=== PATIENT | female | born 1975 | race Caucasian/White ===

== ENCOUNTER 2022-05-18 10:29 | Day surgery (SDC) | payer OTHER ==
[~2022-05-18] VITALS: Ht 167.6 cm; Wt 107.7 kg
[~2022-05-18 10:29] MED LIST: DETROL1 MG PO; FLEVOXIN TABLE1 EACH PO; LEXAPRO10 MG PO; OSTERA TABLET1 EACH PO; PRILOSEC OTC20 MG PO; XELJANZ XR11 MG PO
--- NOTE | 2022-05-18 14:57 | NUR ---
05/18/22 1457 Lillie Talley 1449- PT ARRIVES TO PACU NONAROUSABLE TO STIMULI WITH AN OPA IN PLACE. RESP EVEN AND UNLABORED. OXYGEN SAT LOW TO MID 90'S ON RA. 1451- PT WAKING. OPA ABLE TO BE REMOVED. PT UPDATED THAT HER SURGERY IS OVER AND SHE IS WAKING UP. PT SHIVERING. PROVIDED WARM BLANKETS. 1453- PT ROLLS HERSELF ONTO HER RIGHT SIDE. PILLOW PLACED BEHIND HER BACK. MARIO DRAIN IN SAFE LOCATION.
--- NOTE | 2022-05-18 16:53 | NUR ---
LE 1520 PATIENT BACK TO ROOM 7. REPORT RECIEVED FROM VIRY BRYAN. PATIENT IS ALERT AND ORIENTED. BREATHING EQUAL AND UNLABORED. OXYGEN SATURATIONS ABOVE 95% ROOM AIR. SURGICAL SITE CLEAN, DRY AND INTACT. IVF INFUSING. SCD'S ON. PATIENT DRINKING WATER AND EATING PUDDING. LE 1539 PATIENT COMPLAINING OF 6/10 PAIN. PRN PAIN MEDICINE GIVEN. PATIENT DENIES FEELING NAUSEATED. CALL LIGHT WITHIN REACH NO FUTHER NEEDS. NO QUESTIONS AT THIS TIME. LE 1600 PATIENT STATES PAIN IS IMPROVING. PATIENT AMBULATED TO THE RESTROOM AND VOIDED YELLOW AND CLEAR URINE. LE 1635 PATIENT HAS MET DISCHARGE CRITERIA. PATIENT GIVEN INSTRUCTIONS AND EDUCATION ON MARIO. NO QUESTIONS AT THIS TIME. MARIO DRAIN EMPTIED. PATIENT IV D/C'D WNL. PAITENT DRESSED SELF AND TOLERATED IT WELL. PATIENT WAS WHEELED OUT FACILITY TO PRIVATE AUTO. NO FUTHER NEEDS.
--- NOTE | 2022-05-19 07:59 | OR ---
[facility] [address], [place] [address] Signed DATE OF OPERATION: 05/18/2022 SURGEON: Galen Packer MD PREOPERATIVE DIAGNOSES: 1. Left breast cancer. 2. 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 POSTOPERATIVE DIAGNOSES: 1. Left breast cancer. 2. 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 PROCEDURES: 1. Completion left axillary lymph node dissection. 2. Placement of left axillary drain. ESTIMATED BLOOD LOSS: None. INDICATIONS: Janay is a 46-year-old female I have known for many years. She came to us two weeks ago and we did her left breast wire localization lumpectomy and a sentinel lymph node biopsy. Her sentinel lymph node actually was normal size about 3 or 4 mm. When the pathology report came back, she had that lymph node full of cancer extending through the capsule. There was some concern about lymphovascular invasion. We had some questions about the margins on the lumpectomy site. I had called our radiation oncologist. He had talked with our pathologist who went back and reviewed the slides and dictated in an addendum. The lumpectomy site has clear margins by 6 mm. Therefore, we brought Janay back to perform a completion left axillary dissection. I had spoke with Janay in office, then I called her again on the phone and we spoke over the phone. 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 She understands there is risk including, but not limited to bleeding, infection, scarring, change in contour of the skin as well as damage to the 2nd intercostal nerve with numbness on the back of her arm as well as damage to the long thoracic and/or thoracodorsal nerves. There is also risk for lymphedema. She understands that she is going to be needing additional treatment because of her breast cancer to include radiation and likely chemotherapy as well. In that regard, she will probably need a [id number] upcoming after she meets with her medical oncologist. Janay understands Electronically Signed By: GALEN PACKER MD 05/19/22 0759 PATIENT NAME: JANAY MEDINA OPERATIVE REPORT DATE OF : 79 REPORT #: [id number] PHYSICIAN: GALEN PACKER MD PCP: CHECO BOYD PAC REPORT IS CONFIDENTIAL AND NOT TO BE RELEASED WITHOUT AUTHORIZATION [facility] [address] [place] [id number] Signed we are going to use the same axillary incision, but we have to extend that just a bit to get ourself all the way up to the top of the axilla. She understands this will be a day surgery and she will be going home with her family afterwards with a drain in place. She expressed understanding and wished to proceed. DESCRIPTION OF PROCEDURE: I met with Janay and her boyfriend and her [id number] in our preop area. We all had reviewed all this together and made an addendum to our office note with respect to the addended pathology report. After that, Janay was taken into the operating room and placed in the supine position under general LMA anesthesia. She was given preoperative antibiotics along with subcutaneous heparin. SCDs were utilized. Janay was then prepped and draped in the usual sterile fashion. We had extended her axillary incision mainly to the medial side and just a little bit laterally. This was carried carefully down through the subcutaneous tissues and we got back into the axillary fat. We traveled over to the lateral edge of the pectoralis major muscle and worked our way underneath the muscle and then up to her axillary vein. We then worked our way just below axillary vein to the thoracodorsal neurovascular bundle. We carefully and bluntly brought that tissue up out of the axilla and worked our way inferiorly. We used several clips across some of her veins for hemostasis rather than tie on this occasion. In this way, we took out her axillary tissue. The long thoracic and thoracodorsal nerves were protected throughout the case. We could see she had just a little bit of indurated tissue near the thoracodorsal neurovascular bundle from her previous sentinel lymph node biopsy site. We very carefully dissected it around that until it was free and we sent that off to the pathology department in a separate specimen bottle. We palpated throughout the cavity and we did not feel any other accessory lymph nodes. After this, the wound was irrigated and suctioned out until clear. We injected some local anesthetic carefully into her chest wall and subcutaneous tissues. We brought a #10 flat Kaiden drain into the axilla and we cut it to length. It was attached at the skin below the inframammary crease with interrupted 2-0 nylon suture. We then closed the wound in layers with 3-0 Monocryl sutures. We used 5-0 Monocryl to bring the skin edges back together. Dry gauze and tape were applied to the incision as well as the drain site. After this, Janay was awakened from her anesthesia, extubated in the OR, and taken to the recovery room in stable condition. Galen Packer MD ALB/MODL /[id number] Electronically Signed By: GALEN PACKER MD 05/19/22 0759 PATIENT NAME: JANAY MEDINA OPERATIVE REPORT DATE OF : 79 REPORT #: [id number] PHYSICIAN: GALEN PACKER MD PCP: CHECO BOYD PAC REPORT IS CONFIDENTIAL AND NOT TO BE RELEASED WITHOUT AUTHORIZATION [address] [address] Signed cc: MUMTAZ Ch MD Copies: GALEN PACKER MD ~ Electronically Signed By: GALEN PACKER MD 05/19/22 0759 PATIENT NAME: JANAY MEDINA OPERATIVE REPORT DATE OF : 79 REPORT #: [id number] PHYSICIAN: GALEN PACKER MD PCP: CHECO BOYD PAC REPORT IS CONFIDENTIAL AND NOT TO BE RELEASED WITHOUT AUTHORIZATION
--- NOTE | 2022-05-21 16:41 | NUR ---
PATIENT CALL BACK- PATIENT STATES AT THIS TIME SHE DOESN'T NEED A GOMEZ FROM CANCER CLINIC. NO ISSUES WITH MARIO DRAIN. NO OTHER QUESTIONS.
--- NOTE | 2022-05-22 12:01 | PATH ---
[facility] [address] [facility] [place] [address] Signed SPECIMEN(S): A LEFT AXILLARY TISSUE SPECIMEN(S): B ADDITIONAL AXILLARY TISSUE SPECIMEN SOURCE: A. LEFT AXILLARY TISSUE B. ADDITIONAL AXILLARY TISSUE CLINICAL HISTORY: Breast cancer. FINAL PATHOLOGIC DIAGNOSIS: A. Left axillary tissue: - Positive for metastatic carcinoma in two of thirteen lymph nodes (2/13). - Size of largest metastatic tumor deposit: 8 mm. - Number of lymph nodes with macrometastasis: 2. - Number of lymph nodes with micrometastasis or isolated tumor cells: 0. - Extracapsular extension: Present. - Biopsy site changes. B. Additional axillary tissue: - Benign fibroadipose and vascular tissue with focal fat necrosis and reactive features consistent with biopsy site changes. - Scant fragment of lymphoid tissue, negative for evidence of malignancy. COMMENT: The combined AJCC tumor staging combining the features from and the current lymphoid tissue would correspond to pT1c, pN1a, pMX. JVR:sm:C2NR MICROSCOPIC EXAMINATION: Histologic sections of all submitted blocks are examined by light microscopy. These findings, together with the gross examination, support the pathologic diagnosis. Immunostains are performed with appropriate controls and show the following: Block (A3): - CK7: Negative for metastatic carcinoma. Block (A9): - CK AE 1/3: Negative for metastatic carcinoma. JVR:sm GROSS DESCRIPTION: A. The specimen, labeled and designated "Semaj, left axillary tissue," is PATIENT NAME: KARINA MEDINA PATHOLOGY DATE OF : 79 REPORT #: [id number] PHYSICIAN: MYLES BANDA PCP: CHECO BOYD PAC REPORT IS CONFIDENTIAL AND NOT TO BE RELEASED WITHOUT AUTHORIZATION [facility] [address] [place], [place] [address] Signed received in formalin and consists of a portion of yellow-heaton, lobulated fatty tissue (10.0 x 5.5 x 4.0 cm) containing 12 possible lymph nodes (0.3 to 2.1 cm in greatest dimension) and an ill-defined, fibrous, hemorrhagic area (2.0 x 1.5 x 1.0 cm). All possible lymph nodes are submitted entirely. Electrician Supervisor Airplane sections are submitted. Cassette Summary: (A1) 5 possible lymph nodes, intact (A2) 3 possible lymph nodes, intact (A3) 1 possible lymph node, bisected (A4) 1 possible lymph node, bisected (A5) 1 possible lymph node, bisected (A6-A7) 1 possible lymph node, serially sectioned (A8-A9) Ill-defined fibrous hemorrhagic area, outside energy sales representatives sections B. The specimen, labeled and designated "Semaj, additional axillary tissue," is received in formalin and consists of an unoriented portion of yellow-heaton fatty tissue, red-pink fibrous tissue (8 g, 4.7 x 4.1 x 1.4 cm). The specimen is serially sectioned to reveal yellow-heaton, soft to red-brown and white-heaton, indurated and fibrous cut surfaces. No discrete lymph nodes are identified. Represent sections are submitted in cassettes (B1-B5). Cold ischemic time: Cannot be calculated. The tissue was fixed in formalin for at least 12 and less than 32 hours. AC (under the direct supervision of a pathologist) The Gross Description was prepared using a voice recognition system. The report was reviewed for accuracy; however, sound-alike word errors, addition and/or deletions may occur. If there is any question about this report, please contact Client Services. ADDITIONAL NOTES: Immunohistochemical and/or in situ hybridization studies were performed on this case with the appropriate positive controls that react as expected. This test was developed and its performance characteristics determined by [facility]. It has not been cleared or approved by the U.S. Food and Drug Administration. The FDA has determined that such clearance or approval is not necessary. This test is used for clinical purposes. It should not be regarded as investigational or for research. [facility] is certified under the Clinical Laboratory Improvement Amendments of 1988 (CLIA) as qualified to perform high complexity clinical laboratory testing. This assay has not been validated for specimens that have PATIENT NAME: KARINA MEDINA PATHOLOGY DATE OF : 79 REPORT #: [id number] PHYSICIAN: MYLES BANDA PCP: CHECO BOYD PAC REPORT IS CONFIDENTIAL AND NOT TO BE RELEASED WITHOUT AUTHORIZATION [facility] [address] [place] [id number] Signed been decalcified. PERFORMING LABORATORY: The technical component was performed by [facility], [address] [place] [id number] (CLIA# [id number]). Professional interpretation was performed by [facility], [address] [place] [address] (CLIA#: [id number]). Diagnostician: Glen Lima MD Pathologist Electronically Signed 05/22/2022 Copies: ~ PATIENT NAME: SEMAJKARINA PATHOLOGY DATE OF : 79 REPORT #: [id number] PHYSICIAN: MYLES BANDA PCP: CHECO BOYD PAC REPORT IS CONFIDENTIAL AND NOT TO BE RELEASED WITHOUT AUTHORIZATION
== END 2022-05-18 16:35 | disposition home or self-care (01) ==
LOC: DS 10:29
PROVIDERS: ATTEND Colon & Rectal Surgery
PROC: 07T60ZZ Resection of Left Axillary Lymphatic, Open Approach (ICD-10-PCS; principal; 2022-05-18 12:15)
DX: C77.3 Secondary and unspecified malignant neoplasm of axilla and upper limb lymph nodes (principal); C50.912 Malignant neoplasm of unspecified site of left female breast; M06.9 Rheumatoid arthritis, unspecified; F17.210 Nicotine dependence, cigarettes, uncomplicated; Z88.5 Allergy status to narcotic agent; Z88.8 Allergy status to other drugs, medicaments and biological substances; Z79.899 Other long term (current) drug therapy
CPT/HCPCS: 84703; J0131; J0690; J1100; J1170; J1644; J2001; J2405; J2704; J3010; J7121